=== PATIENT | male | born 1960 | race Two or more races ===

== ENCOUNTER 2023-11-15 17:09 | Emergency (ER) | payer OTHER ==
[~2023-11-15] VITALS: Ht 165.1 cm; Wt 68.0 kg
[2023-11-15] MEDS ORDERED: LISINOPRIL30 MG PO (20:04)
[2023-11-15] MEDS ORDERED: HUMALOG KW100 UNIT/1 SQ (20:05)
[2023-11-15] MEDS ORDERED: GLIMEPIRIDE2 M1 PO (20:05)
[2023-11-15] MEDS ORDERED: ACTOS30 MG PO (20:05)
[2023-11-15 22:30] LABS: HEMATOCRIT 41.3 % (39.0-48.0); MEAN CELL VOLUME 88.8 fL (80.0-100.00); MEAN CORPUSCULAR HEMOGLOBIN 30.2 pg (27.00-32.0); PLATELET COUNT 304 K/uL (150-450); RED BLOOD COUNT 4.65 M/uL (4.00-6.00)
[2023-11-15 22:43] LABS: CALCIUM 10.8 mg/dL (8.5-10.1); CREATININE SERUM 1.43 mg/dL (0.70-1.30); GFR 50.27; POTASSIUM 4.5 mEq/L (3.5-5.1)
[2023-11-16] MEDS ORDERED: KETO10TA2 PO (04:51)
== END 2023-11-16 05:00 | disposition home or self-care (01) ==
LOC: ER 17:10
PROVIDERS: General Practice
DX: M25.511 Pain in right shoulder (principal); M50.30 Other cervical disc degeneration, unspecified cervical region; E11.65 Type 2 diabetes mellitus with hyperglycemia; Z79.4 Long term (current) use of insulin; I10 Essential (primary) hypertension